=== PATIENT | female | born 1965 | race Caucasian/White ===

== ENCOUNTER 2024-04-23 11:33 | Outpatient (AMB) | payer OTHER, SELFPAY ==
--- NOTE | 2024-04-22 17:13 | MHC.OFFVIS ---
Vital Signs 04/23/24 11:41 Height 57 ft Weight 179 lb 4 oz BMI 0.3 BP 100/70 Blood Pressure Location Lt brachial Position Sitting Intake Visit Reasons: RA (no [facility] records) Intake Note: Patient presents for a follow up rheumatoid arthritis. No complaints just the usual body pain. 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 Aguilar at the [facility], diclofenac was increased to 75mg BID, which improved knee pain. She continues to have general pain but it is tolerable. She experienced Left knee joint infection s/p replacement 2021, right foot cellulitis and bacteiemia treated with IV antibiotic 01/06/2024 hospitalized 11 days. She is on doxycylcine and rifampin with oral washes until June 2024. Left shoulder is being replaced 05/2024. She went to occupational therapy in October. She had 2 sessions. She has not been consistent with exercises. She continues to have weakness in her hands. She has history of bilateral knee replacements, a hip replacement and left shoulder replacement. [facility] Social History (Updated 04/23/24 @ 11:38 by Linda Yi MA) Alcohol intake: never Patient Tobacco Use Status: Never used Tobacco Physical Exam Vital Signs: Last Vital Signs BP 100/70 04/23/24 11:41 BMI result Body Mass Index 0.3 Const Other: General: Comfortable Skin: No lesions seen MSK: Tenderness of DIPs with Heberden's nodes present. 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 No synovitis of hands. Good range of motion of shoulders. Left knee is swollen. Tenderness of left knee. Good range of motion of lower extremities. Assessment & Plan Assessment & Plan (1) Generalized osteoarthritis: Comment: Pain is better controlled with increasing diclofenac dose to 75 mg twice a day. She has history of osteoarthritis affecting hands, knee status post replacement, and hip status post replacement. Code(s): M15.9 - Polyosteoarthritis, unspecified Category: Medical Plan: Continue diclofenac 75 mg twice a day. Labs for drug monitoring chronic NSAID ordered She will call office when she needs diclofenac prescription refilled [facility] Return to clinic in 3 months (2) Osteoarthritis of hands, bilateral: Comment: Completed occupational therapy two session but has not been consistent with exercises at home. Code(s): M19.041 - Primary osteoarthritis, right hand; M19.042 - Primary osteoarthritis, left hand Category: Medical Qualifiers: Osteoarthritis type: primary Qualified Code(s): M19.041 - Primary osteoarthritis, right hand; M19.042 - Primary osteoarthritis, left hand Plan: We discussed importance of having a consistent exercise program. She will also try purchasing hand exercise gripping balls Continue diclofenac 75 mg twice a day Labs for drug monitoring chronic NSAID ordered Return to clinic in 3 months. Can consider another referral for occupational therapy next visit if needed (3) senior living (current) use of non-steroidal anti-inflammatories (nsaid): Code(s): Z79.1 - senior living (current) use of non-steroidal anti-inflammatories (NSAID) Category: Medical Plan: See above Orders: Orders Creatinine Today Z79.1 - senior living (current) use of non-steroidal anti-inflammatories (NSAID) Aspartate Amino Transferase Today Z79.1 - keno terminal operator (current) use of non-steroidal anti-inflammatories (NSAID) Alanine Aminotransferase Today Z79.1 - senior living (current) use of non-steroidal anti-inflammatories (NSAID) Complete Blood Count Auto Diff Today Z79.1 - keno terminal operator (current) use of non-steroidal anti-inflammatories (NSAID) Coding Level of Care Code Est Pt Level 4 (17178) Complex EM visit Add On G2211 Diagnoses Generalized osteoarthritis M15.9 Primary osteoarthritis of both hands M19.041; M19.042 Osteoarthritis type: primary senior living (current) use of non-steroidal anti-inflammatories (nsaid) Z79.1
[2024-04-23 11:41] VITALS: BP 100/70
== END 2024-04-23 12:21 | disposition home or self-care (01) ==
PROVIDERS: PCP Physician Assistant; Visit Provider Internal Medicine Rheumatology
DX: M15.9 Polyosteoarthritis, unspecified (principal); M19.041 Primary osteoarthritis, right hand; M19.042 Primary osteoarthritis, left hand; Z79.1 Long term (current) use of non-steroidal anti-inflammatories (NSAID)
CPT/HCPCS: 99214

== ENCOUNTER 2024-07-23 09:58 | Outpatient (REF) | payer OTHER, SELFPAY ==
[2024-07-23 18:36] LABS: Alanine Aminotransferase 29 U/L (0-31); Albumin Level 3.9 g/dL (3.5-5.0); Alkaline Phosphatase 127 U/L (39-117); Aspartate Amino Transferase 27 U/L (5-31); Bilirubin Direct 0.1 mg/dL (0.0-0.5); Bilirubin Total 0.3 mg/dL (0.0-1.0); Total Protein 6.6 g/dL (6.5-8.0)
[2024-07-23 18:37] LABS: Alanine Aminotransferase 26 U/L (0-31); Aspartate Amino Transferase 27 U/L (5-31)
== END 2024-07-23 09:59 | disposition home or self-care (01) ==
LOC: HO.HKASLDS 09:58
PROVIDERS: PCP Physician Assistant; Visit Provider Internal Medicine Rheumatology
DX: M15.9 Polyosteoarthritis, unspecified (principal); R74.01 Elevation of levels of liver transaminase levels; Z79.1 Long term (current) use of non-steroidal anti-inflammatories (NSAID)
CPT/HCPCS: 36415; 80076; 84450; 84460

== ENCOUNTER 2024-07-23 09:58 | Outpatient (AMB) | payer OTHER, SELFPAY ==
--- NOTE | 2024-07-23 10:02 | MHC.OFFVIS ---
Vital Signs 07/23/24 10:06 Height 5 ft 7 in Weight 183 lb 13.848 oz BMI 28.8 BP 130/90 H Blood Pressure Location Rt brachial Position Sitting Pulse 72 Pulse Source Pulse Oximeter Pulse Oximetry (%) 97 Oxygen Delivery Method Room Air Intake Visit Reasons: RA Intake Note: Patient presents for a follow up rheumatoid arthritis. Allergies No Known Allergies Allergy (Verified 07/23/24 10:06) HPI HPI RA: Details: She was on rifampin and doxycycline for treatment of septic arthritis involving her left knee prosthetic joint and left foot. She is now off of rifampin and remains on doxycycline. She will be seeing Infectious Disease for consideration of continue doxycycline long term acute care registered nurse or discontinuing it. She has increased joint pain and gel phenomenon since decreasing diclofenac from 75 mg b.i.d. to 50 mg b.i.d.. She had replacement of left shoulder May 2024. She is undergoing physical therapy. She has been doing exercises for her right hand. She was told to hold left hand exercises due to PT for left shoulder. [facility] Surgical History (Updated 07/23/24 @ 10:07 by Prachi Meade CMA) History of shoulder replacement Social History (Updated 04/23/24 @ 11:38 by Linda Yi MA) Alcohol intake: never Patient Tobacco Use Status: Never used Tobacco Review of Systems Const All systems reviewed & are unremarkable except as noted in HPI and below Physical Exam Vital Signs: Last Vital Signs Pulse 72 07/23/24 10:06 BP 130/90 H 07/23/24 10:06 Pulse Ox 97 07/23/24 10:06 Oxygen Delivery Method Room Air 07/23/24 10:06 BMI result Body Mass Index 28.8 Const Other: General: Comfortable Skin: No lesions seen MSK: Tenderness of DIPs with Heberden's nodes present. Tender bilateral MCPs. 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 No synovitis of hands. Assessment & Plan Assessment & Plan (1) Generalized osteoarthritis: Comment: Generalized pain has increased since decreasing diclofenac from 75 mg b.i.d. to 50 mg b.i.d. due to transaminitis labs from May 2024. She was also being treated with antibiotic rifampin and doxycycline for septic arthritis, which can also contribute to transaminitis. I will be ordering labs with repeating liver function this visit. She has developed pain in her MCPs this visit without synovitis (new onset). We discussed monitoring for progression and signs to watch for concerning for inflammatory arthritis. She has history of osteoarthritis affecting hands, bilateral knee status post bilateral replacement, left shoulder replacement and left hip status post replacement. Code(s): M15.9 - Polyosteoarthritis, unspecified Category: Medical Plan: Continue diclofenac 50 mg twice a day. If LFTs normalize, I will increase diclofenac to 75 mg b.i.d. Labs for drug monitoring chronic NSAID ordered She will be following up with orthopedic surgeon about pain post replacement of joints Monitor MCPs for progression of pain and development of swelling. She will then call office for evaluation and further workup for inflammatory arthritis. Return to clinic in 3 months (2) Osteoarthritis of hands, bilateral: Comment: Completed occupational therapy two session in the past but has not been consistent with exercises at home. At this time occupational therapy is on hold due to her undergoing PT post left shoulder replacement. Code(s): M19.041 - Primary osteoarthritis, right hand; M19.042 - Primary osteoarthritis, left hand Category: Medical Qualifiers: Osteoarthritis type: primary Qualified Code(s): M19.041 - Primary osteoarthritis, right hand; M19.042 - Primary osteoarthritis, left hand Plan: We discussed importance of having a consistent exercise program. She will continue using gripping balls with her right hand. She will communicate with physical therapist about when it is safe for her to resume OT exercises left hand Continue diclofenac 50 mg twice a day. Plan to increase diclofenac to 75 mg b.i.d. if transaminitis resolves Labs for drug monitoring chronic NSAID ordered Return to clinic in 3 months. Can consider another referral for occupational therapy next visit if needed (3) long term care phlebotomist (current) use of non-steroidal anti-inflammatories (nsaid): Code(s): Z79.1 - long term care phlebotomist (current) use of non-steroidal anti-inflammatories (NSAID) Category: Medical Plan: See above Orders: Orders Liver Panel Today R74.01 - Elevation of levels of liver transaminase levels Creatinine Today Z79.1 - long term care phlebotomist (current) use of non-steroidal anti-inflammatories (NSAID) Coding Level of Care Code Est Pt Level 4 (98105) Complex EM visit Add On G2211 Diagnoses Generalized osteoarthritis M15.9 Primary osteoarthritis of both hands M19.041; M19.042 Osteoarthritis type: primary detention (current) use of non-steroidal anti-inflammatories (nsaid) Z79.1
[2024-07-23 10:06] VITALS: BP 130/90; PULSE 72; O2SAT 97; BMI 28.8
== END 2024-07-23 10:33 | disposition home or self-care (01) ==
LOC: HO.RHES 09:59
PROVIDERS: PCP Physician Assistant; Visit Provider Internal Medicine Rheumatology
DX: M19.041 Primary osteoarthritis, right hand (principal); M19.042 Primary osteoarthritis, left hand; Z79.1 Long term (current) use of non-steroidal anti-inflammatories (NSAID)
CPT/HCPCS: 99214

== ENCOUNTER 2024-10-23 10:17 | Outpatient (REF) | payer OTHER, SELFPAY ==
[2024-10-23 18:33] LABS: Alanine Aminotransferase 38 U/L (0-31); Aspartate Amino Transferase 37 U/L (5-31); Estimated Glomerular Filt Rate > 60
== END 2024-10-23 10:18 | disposition home or self-care (01) ==
LOC: HO.HKASLDS 10:17
PROVIDERS: PCP Physician Assistant; Visit Provider Internal Medicine Rheumatology
DX: M19.041 Primary osteoarthritis, right hand (principal); M19.042 Primary osteoarthritis, left hand; Z79.1 Long term (current) use of non-steroidal anti-inflammatories (NSAID)
CPT/HCPCS: 36415; 82565; 84450; 84460

== ENCOUNTER 2024-10-23 10:17 | Outpatient (AMB) | payer OTHER, SELFPAY ==
--- OUTSIDE RECORDS SUMMARY | 2023-11-16 11:29 | XMS_ITS | Continuity of Care Document ---
Author Organization [facility] Address [address] [place] [address] Dr [address] [place] [address] Phone Care Team Providers Care Chief Of Planning Name Role Phone Alex RICHARDSON, NORBERTO, Sarthak MONTES Unavailable U navailable Procedures Procedure Date Offic Cons New/estab Mod-hi 60- CT & [place] Duplex Scan-extrem Veins; Comp- [place] & [place] Advance Directives Directive Yes / No Effective Date File Name No Information Encounters Encounter Description Practice Location Reason(s) For Visit Diagnoses Date Provider Providers Copied on Encounter [facility], [address] [place] [address] Dr Thakkar [address], [id number], tel:[phone] CVJames Huerta No Information Alex RICHARDSON, SIMON THORNTON. [address], [place], [place], [id number] , [place]. tel:[phone] Offic Cons New/estab Mod-hi 60- [place] & [place] [facility] MD CHANDRA, [address] [place] [address] Dr Thakkar [address]De[place], [id number], tel:[phone] CVJames - [facility] Chronic venous hypertension (idiopathic) with other complications of bilateral lower extremityRestle ss legs syndromeVenous insufficiency (chronic) (peripheral)Lym phedema, not elsewhere classifiedPruri tus, unspecifiedHere ditary lymphedemaLocal ized edema 4 Alex RICHARDSON, NORBERTO, RPGISELLA De León. [address] [facility] [address] [facility], [address], [facility] [place], [id number] , [place]. tel:[phone] [facility], [address], [place], [id number], [place] tel:[phone] [facility] Chronic venous hypertension (idiopathic) with other complications of bilateral lower extremity 4 Alex RICHARDSON RVT, SIMON De León. [address], [address], [place], [id number] , [place]. tel:[phone] Referring Provider: Sarthak Johnson MD, NORBERTO, SIMON, [address] [facility] [address], [place], [address] . tel:[phone] Family History Family Member Type Diagnosis Age At Onset No Information Payers Payer name Insurance type Covered republican ID [facility] [facility] [id number] Social History Type Description Quantity Date Captured Comments Sex Female Smoking Status No Information Chief Complaint And Reason For Visit No Information Reason For Referral Reason For Referral No Information Plan Of Treatment Date Type Action Status Goal Diet education completed Referral Ordered: Weight management: Referral to physician timeframe: 3 Months (related to Body mass index (BMI) 27.0-27.9, adult) ordered History Of Present Illness Encounter Date Complaint History Of Prese nt Illness No Information Functional Status Date Functional Assessmen t No Information Instructions Date Instruction Additional Infor mation Diet education Related to Body mass index (BMI) 27.0-27.9, adult Giving Encouragement to exercise Related to Body mass index (BMI) 27.0-27.9, adult Lifestyle education Related to B nazario mass index (BMI) 27.0-27.9, adult Patient education booklet given Related to Chronic venous hypertension (idiopathic) with other complications of bilateral lower extremity Pre and post instruc tions reviewed and provided Related to Chronic venous hypertension (idiopathic) with other complications of bilateral lower extremity Assessments Type Assessment Date No Information Patient Care Teams Name Effective Dates (start - stop) Status Members No Information
--- NOTE | 2024-10-23 10:22 | A.OFFVIS_ITS ---
Vital Signs 10/23/24 10:23 Height 5 ft 7 in Weight 184 lb BMI 28.8 BP 120/70 Blood Pressure Location Lt brachial Position Sitting Pulse 73 Pulse Source Pulse Oximeter Pulse Oximetry (%) 99 Oxygen Delivery Method Room Air Intake Visit Reasons: 3 Months Intake Note: Patient presents for a follow up rheumatoid arthritis. Allergies No Known Allergies Allergy (Verified 10/23/24 10:29) HPI HPI 3 Months: Details: Overall pain has improved since being back on diclofenac 75mg BID from 50mg BID MS 1-2 hours She is experiencing gel phemenemena Joint pain in hands has resolved with higher dose of diclofenac. No new joint swelling. Her PCP spoke with her about questioning connective tissue disease due to multiple joint replacement at a young age. [facility] Surgical History (Updated 10/23/24 @ 10:28 by Prachi Meade CMA) Status post scar revision History of shoulder replacement Social History (Updated 04/23/24 @ 11:38 by Linda Yi MA) Alcohol intake: never Patient Tobacco Use Status: Never used Tobacco Physical Exam Vital Signs: Last Vital Signs Pulse 73 10/23/24 10:23 BP 120/70 10/23/24 10:23 Pulse Ox 99 10/23/24 10:23 Oxygen Delivery Method Room Air 10/23/24 10:23 BMI result Body Mass Index 28.8 Const Other: General: Comfortable Skin: No lesions seen MSK: No tender joints. No synovitis. Heberden nodes present. Normal range of motion of upper extremities. Bilateral knee flexion 100 degrees. No MTP tenderness. Assessment & Plan Assessment & Plan (1) Generalized osteoarthritis: Comment: Generalized pain is tolerable on diclofenac 70 mg b.i.d. MCP pain has resolved. At this time she does not have any clinical evidence of inflammatory arthritis or any other connective tissue disease. We discussed signs and clinical symptoms to monitor for inflammatory arthritis. She has history of osteoarthritis affecting hands, bilateral knee status post bilateral replacement, left shoulder replacement and left hip status post replacement. Code(s): M15.9 - Polyosteoarthritis, unspecified Category: Medical Plan: Continue diclofenac 75 mg twice a day. Labs for drug monitoring chronic NSAID ordered If she develops worsening swelling of right knee s/p replacement I have asked her to contact orthopedic surgeon for consideration of diagnostic arthrocentesis Monitor MCPs and PIP knees for progression of pain and development of swelling. She will also monitor for worsening joint stiffness. She will then call office if symptoms progress for evaluation and further workup for inflammatory arthritis. Return to clinic in 3 months (2) Osteoarthritis of hands, bilateral: Comment: Improved pain with higher dose of diclofenac. She continues to do exercises learned from OT. Code(s): M19.041 - Primary osteoarthritis, right hand; M19.042 - Primary osteoarthritis, left hand Category: Medical Qualifiers: Osteoarthritis type: primary Qualified Code(s): M19.041 - Primary osteoarthritis, right hand; M19.042 - Primary osteoarthritis, left hand Plan: Continue OT exercises Continue diclofenac 75 mg twice a day Labs for drug monitoring chronic NSAID ordered Return to clinic in 3 months (3) halfway (current) use of non-steroidal anti-inflammatories (nsaid): Code(s): Z79.1 - halfway (current) use of non-steroidal anti-inflammatories (NSAID) Category: Medical Plan: See above Orders: Orders Alanine Aminotransferase Today Z79.1 - middle or intermediate school principal (current) use of non-steroidal anti-inflammatories (NSAID) Aspartate Amino Transferase Today Z79.1 - halfway (current) use of non-steroi collin anti-inflammatories (NSAID) Coding Level of Care Code Est Pt Level 4 (96934) Complex EM visit Add On G2211 Diagnoses Generalized osteoarthritis M15.9 Primary osteoarthritis of both hands M19.041; M19.042 Osteoarthritis type: primary middle or intermediate school principal (current) use of non-steroidal anti-inflammatories (nsaid) Z79.1 Time Spent (min) 20
[2024-10-23 10:23] VITALS: BP 120/70; PULSE 73; O2SAT 99; BMI 28.8
== END 2024-10-23 10:56 | disposition home or self-care (01) ==
LOC: HO.RHES 10:18
PROVIDERS: PCP Physician Assistant; Visit Provider Internal Medicine Rheumatology
DX: M15.9 Polyosteoarthritis, unspecified (principal); Z79.1 Long term (current) use of non-steroidal anti-inflammatories (NSAID)
CPT/HCPCS: 99213; G2211

== ENCOUNTER 2025-01-16 12:06 | Outpatient (REF) | payer OTHER, SELFPAY ==
--- OUTSIDE RECORDS SUMMARY | 2025-01-16 14:20 | XMS_ITS | Clinical Summary ---
Author Organization 175 [facility] Address [address] [place] [address] Phone Care Team Providers Care Head Waiter/Waitress Name Role Phone Beth Tolbert Primary Care Provider + Allergies No known active allergies Medications Bacillus coagulans/inulin (PROBIOTIC FORMULA, INULIN, ORAL) Take by mouth daily. 04/04/20 23 Active inulin (FIBER GUMMIES ORAL) Take by mouth daily. Active multivitamin tablet daily. 06/17/19 23 Active erenumab-aooe (Aimovig Autoinjector) 140 mg/mL injection Inject 140 mg into the skin every 30 days. 04/28/20 22 Active cholecalciferol (VITAMIN D-3) 50 mcg (2,000 unit) capsule Take 1 capsule by mouth daily. 05/19/19 22 Active clobetasoL (TEMOVATE) 0.05 % cream 09/04/19 19 Active desonide (DESOWEN) 0.05 % cream 09/04/19 19 Active fluticasone propionate (FLONASE) 50 mcg/actuation nasal spray USE 1 TO 2 SPRAYS IN EACH NOSTRIL ONCE DAILY. 05/11/19 11 Active omeprazole (PriLOSEC) [address] capsule Take 1 Capsule by mouth daily. 05/04/19 24 Active pregabalin (LYRICA) 75 mg capsule TAKE 1 CAPSULE BY MOUTH TWICE DAILY 03/21/20 23 Active ondansetron (ZOFRAN) 4 mg tablet Take 1 Tablet by mouth every 8 hours as needed for Nausea. - Oral 01/18/20 24 Active diclofenac (VOLTAREN) 75 mg EC tablet Take 1 tablet (75 mg total) by mouth 2 (two) times a day. Do not crush, chew, or split. Active doxycycline (ADOXA) 100 mg tablet Take 1 tablet (100 mg total) by mouth 2 (two) times a day. Take with a full glass of water and do not lie down for at least 30 minutes after Active traZODone (DESYREL) 50 mg tabletIndications :Insomnia, unspecified type Take 1-2 tabs nightly as needed 180 tablet 3 06/17/19 25 Active furosemide (LASIX) 40 mg tablet Take 1 tablet (40 mg total) by mouth 1 (one) time each day. 90 tablet 3 07/16/19 25 Active bisacodyL (DULCOLAX) 5 mg EC tablet Take 2 tablets by mouth right before beginning bowel prep. See instructions provided by the office 2 tablet 07/24/19 25 Active bisacodyL (DULCOLAX) 5 mg EC tablet Take 2 tablets by mouth right before beginning bowel prep. See instructions provided by the office 2 tablet 09/21/19 25 Active polyethylene glycol (Golytely) 236-22.74-6.74 -5.86 gram solution Take 4L by mouth once for one dose. May substitue any PEG. Starting at 6PM the night before your procedure drink 1 8oz glasses at your own pace until you complete half of the gallon. Finish 2nd half of the gallon 5 hours before your procedure. 4000 mL 09/21/19 25 Active linaCLOtide (Linzess) 72 mcg capsule Take 1 capsule (72 mcg total) by mouth 1 (one) time each day. 90 capsule 3 10/15/19 25 Active dicyclomine (BENTYL) 10 mg capsule Take 1 capsule (10 mg total) by mouth 3 (three) times a day if needed (abd pain, diarrhea). 270 capsule 3 10/15/19 25 026 Active phentermine 15 mg capsuleIndication s:Obesity (BMI 30.0-34.9) Take 1 capsule (15 mg total) by mouth 1 (one) time each day before breakfast. Max Daily Amount: 15 mg 30 each 11/30/19 25 Active phentermine-topir amate (Qsymia) 11.25-69 mg capsule, ER multiphase 24 hrIndications:Obe sity (BMI 30.0-34.9),Chroni c pain of both knees Take 1 capsule by mouth 1 (one) time each day. Max Daily Amount: 1 capsule 30 capsule 3 12/20/19 25 Active tiZANidine (ZANAFLEX) 4 mg tablet Take 1/2 tab every morning as needed and 1 tablet every evening as needed 135 tablet 2 01/16/20 25 Active tiZANidine (ZANAFLEX) 4 mg tablet Take 1/2 tab every morning as needed and 1 tablet every evening as needed 135 tablet 2 07/09/19 25 025 Discontinu ed(Reorder ) phentermine-topir amate (Qsymia) 7.5-46 mg capsule, ER multiphase 24 hrIndications:Obe sity (BMI 30.0-34.9),Hyperl ipidemia, unspecified hyperlipidemia type,Lumbar pain Take 1 capsule by mouth 1 (one) time each day. Max Daily Amount: 1 capsule 28 capsule 11/27/19 25 025 Discontinu ed(Dose adjustment ) amoxicillin-clavu lanate (AUGMENTIN) 875-125 mg per tablet Take 1 tablet by mouth 2 (two) times a day for 10 days. 20 each 12/24/19 25 025 Active Problems Problem Noted Date Diagnosed Date Eczema 02/08/2024 Overview (02/08/2024): f/u NE DERM Obesity (BMI 30.0-34.9) 02/08/2024 Chronic pain of both knees 05/19/2020 Shakiness 05/12/2020 Disorder of left rotator cuff 05/05/2020 Abscess of left thigh 04/28/2020 MRSA carrier 04/28/2020 Lumbar pain 06/20/2019 Allergic rhinitis 11/14/2017 Chronic venous insufficiency 11/14/2017 Headache, migraine 11/14/2017 Hyperlipidemia 11/14/2017 Idiopathic small fiber peripheral neuropathy Edema 12/29/2016 Irritable bowel syndrome 05/12/2016 Insomnia 10/27/2015 Breast asymmetry 04/23/2015 Encounters Date Type Department Care Team Description 12/23/2024 Telephone Internal Medicine [facility] 175 [facility] [address] [place] [address] Nivia Alvarez [place] 12/19/2024 1:00 PM EDT Office Visit Internal Medicine [address] [place] [address] Ivone Mullen, BRITTNEY Obesity (BMI 30.0-34.9) (Primary Dx); Chronic migraine with aura without status migrainosus, not intractable; Chronic pain of both knees 11/12/2024 1:45 PM EDT Consult General Surgery [address] [place] [phone] Dilshad Victoria, DO Diverticulitis of large intestine without perforation or abscess without bleeding (Primary Dx); Hx of colonic polyps; Diverticulosis 11/12/2024 Telephone Internal Medicine - [address] [place] [phone] Beth Tolbert PA 10/16/2024 Telephone Internal Medicine [address] [phone] Beth Tolbert PA from Last 3 Months Immunizations Name Administration Dates Next Due Td Tetanus diptheria (Tdvax) 7yo and older 01/08 Surgical History Surgery Date Site/Laterality Comments CHOLECYSTECTOMY PROCEDURE: HISTORICAL CHOLECYSTECTOMY BUNIONECTOMY Right PROCEDURE: BUNION SURGERY, SIMPLE REMOVAL; COMMENT: 12/2021 Dr. Trujillo SHOULDER ARTHROSCOPY 07/2019 Left PROCEDURE: PA SURGICAL ARTHROSCOPY SHOULDER W/LSS&RESCJ ADS; COMMENT: Dr. Frias OTHER SURGICAL HISTORY PROCEDURE: ANESTHESIA FOR SECTION; COMMENT: x 1 SHOULDER ARTHROSCOPY 2015 Right PROCEDURE: PA SURGICAL ARTHROSCOPY SHOULDER W/LSS&RESCJ ADS; COMMENT: Dr. Frias EYE SURGERY 01/2020 Bilateral PROCEDURE: HISTORICAL EYE SURGERY; COMMENT: Randolph Rao SHOULDER ARTHROSCOPY 03/2020 Left PROCEDURE: PA SURGICAL ARTHROSCOPY SHOULDER W/LSS&RESCJ ADS; COMMENT: Dr. Frias FOOT SURGERY -2014 Right PROCEDURE: HISTORICAL FOOT SURGERY; COMMENT: lyndsey Suarez with tendon transfer SHOULDER ARTHROSCOPY 12/2020 Left PROCEDURE: PA SURGICAL ARTHROSCOPY SHOULDER W/LSS&RESCJ ADS; COMMENT: Dr. Frias TOTAL KNEE ARTHROPLASTY 07/29/2022 Right PROCEDURE: HISTORICAL TOTAL KNEE REPLACE; COMMENT: Dr. Fay TOTAL KNEE ARTHROPLASTY 09/13/2022 Left PROCEDURE: HISTORICAL TOTAL KNEE REPLACE; COMMENT: Dr. Fay HIP ARTHROPLASTY 04/04/2023 Right PROCEDURE: HISTORICAL HIP REPLACEMENT; COMMENT: Dr. Fay REVERSE TOTAL SHOULDER ARTHROPLASTY 05/23/[address] Frias Medical History Medical History Date Comments Allergic rhinitis 11/14/2017 DX:Allergic rh initis Breast asymmetry 04/23/2015 DX:Breast asymm etry Chronic venous insufficiency 11/14/2017 DX: Chronic venous insufficiency Edema 12/29/2016 DX:Edema Headache, migraine 11/14/2017 DX:Headache, migraine History of diverticulitis of colon 04/14/2017 DX:History of diverticulitis of colon Hyperlipidemia 11/14/2017 DX:Hyperlipidemi a Idiopathic small fiber perip heral neuropathy 11/14/2017 DX:Idiopathic small fiber pe ripheral neuropathy Insomnia 10/27/2015 DX:Insomnia Irritable bowel syndrome 05/12/2016 DX:Irri table bowel syndrome Microscopic hematuria 10/02/2014 DX:Microsc opic hematuria Eczema DX:Eczema; COMME NT: f/u NE DERM At high risk for breast cancer D X:At high risk for breast cancer; COMMENT: follows [facility] Breast Fiatt - start Tamoxifen 20 mg daily 01/2020 Obesity (BMI 30.0-34.9) DX:Obesi ty (BMI 30.0-34.9) Family History Medical History Relation Name Comments Diabetes Father Breast cancer Maternal Grandmother Breast cancer Mother Relation Name Status Comments Father Maternal Grandmother Mother (Age 58) Sister Alive Social History Tobacco Use Types Packs/Day Years Used Date Smoking Tobacco: Never Smokeless Tobacco: Never Alcohol Use Standard Drinks/Week Comments No 0 (1 standard drink = 0.6 oz pur e alcohol) Housing Instability Answer Date Recorde d Are you worried that in the next 2 months you may not have stable housing? No 07/19/2024 Food Access & Nutrition Answer Date Rec orded Do you have access to a vari ety of food including fruits and vegetables? Yes 07/19/2024 Access to Healthcare Answer Date Record ed Within the last 3 months, ho w many times did you visit the emergency department for your medical care? 0 07/19/2024 Health Literacy Answer Date Recorded How often do you need to hav e someone help you when you read instructions, pamphlets, or other written material from your doctor or pharmacy? Never 07/19/2024 Caregiver: How often do you need to have someone help you when you read instructions, pamphlets, or other written material from your doctor or pharmacy? Not on file 07/19/2024 Financial Risk Answer Date Recorded How hard is it for you to pa y for the very basics like food, housing, medical care, and air conditioning / heating? Somewhat hard 07/19/2024 Transportation Answer Date Recorded Has the lack of transportati on kept you from meetings, work, or from getting things needed for daily living? No Has the lack of transportati on kept you from medical appointments or from getting medications? No 07/19/2024 Social Isolation Answer Date Recorded How often do you feel lonely or isolated from th ose around you? Never 07/19/2024 Food Risk Answer Date Recorded Within the past 12 months we worried whether our food would run out before we got money to buy more. Never true 07/19/2024 Within the past 12 months th e food we bought just didn't last and we didn't have money to get more. Never true 07/19/2024 Dependent Care Answer Date Recorded Do you need help finding or paying for care for your loved ones. For example, early childhood teacher or elderly care for an older adult? No 07/19/2024 Education Answer Date Recorded Do you think completing more education or training, like finishing a GED, going to college, or learning a trade, would be helpful for you? No 07/19/2024 Employment and Income Answer Date Recor ded During the last four weeks, have you been actively looking for work? No 07/19/2024 Living Situation Answer Date Recorded What is your living situation? 0 07/19/2024 Comments No Sex and Gender Information Value Date Recorded Sex Assigned at Not on file Legal Sex Female 1:58 PM EST Gender Identity Not on file Sexual Orientation Not on file Obstetrics History Last Filed Vital Signs Vital Sign Reading Time Taken Comments Blood Pressure 134/78 12/19/2024 1:14 PM EDT Pulse 110 12/19/2024 1:14 PM EDT Temperature 36.3 C (97.3 F) 12/19/2024 1:14 PM EDT Respiratory Rate 18 10/04/2024 8:56 AM EDT Oxygen Saturation 98% 12/19/2024 1:14 PM EDT Inhaled Oxygen Concentration - - Weight 80.1 kg (176 lb 9.6 oz) 12/19/2024 1:14 P M EDT Height 170.2 cm (5' 7 ) 12/19/2024 1:14 PM EDT Body Mass Index 27.66 12/19/2024 1:14 PM EDT Plan of Treatment Upcoming Encounters Date Type Department Care Team (Late st Contact Info) Description 04/15/2025 10:30 AM EST Office Visit Internal Medicine [facility] [address] [phone] Ivone Mullen NP [address] [address] 04/16/2025 9:30 AM EST Office Visit Gastroenterology [facility] [address] [phone] Diana Napoles PA [address] [address] 05/12/2025 10:00 AM EST Office Visit General Surgery [facility] [address] [phone] Dilshad Victoria, DO [address] [address] 07/28/2025 10:00 AM EDT Office Visit Internal Medicine [facility] [address] [phone] Beth Tolbert PA [address] [address] Health Maintenance Due Date Last Done Comments Breast Cancer Screening 1965 Hepatitis B Vaccines (1 of 3 - 19+ 3-dose series) 1985 Cervical Cancer Screening: P ap Smear 10/26/1987 Pneumococcal Vaccine: 50+ Years (1 of 1 - PCV) 2016 Zoster Vaccines (1 of 2) 2016 DTaP,Tdap,and Td Vaccines (2 - Td or Tdap) 01/08/2018 01/09/2008 HIV Screening 04/09/2022 Hepatitis C Screening 04/09/2022 Osteoporosis Screening (Bone Density Screening) 04/09/2022 COVID-19 Vaccine (3 - 2024-2 6 season) 2024 10/07/2020, 09/16/2020 Influenza Vaccine (#1) 2024 , 04/20/2020 Social Influencers of Health Screening 07/19/2025 07/19/2024 Colorectal Cancer Screening: Colonoscopy 10/05/2027 10/04/2024, 02/15/2023 Cholesterol Screening (Lipid Panel) 05/16/2029 05/16/2024, 05/05/2020 MMR Vaccines Aged Out 06/11/2021 No longer eligi ble based on patient's age to complete this topic Depression Screening Completed 07/19/2024 HIB Vaccines Aged Out No longer eligi ble based on patient's age to complete this topic HPV Vaccines Aged Out No longer eligi ble based on patient's age to complete this topic Hepatitis A Vaccines Aged Out No long er eligible based on patient's age to complete this topic IPV Vaccines Aged Out No longer eligi ble based on patient's age to complete this topic Meningococcal ACWY Vaccine Aged Out N o longer eligible based on patient's age to complete this topic Meningococcal B Vaccine Aged Out No l onger eligible based on patient's age to complete this topic RSV Immunization Patients Under 20 months Aged Out No longer eligible b ased on patient's age to complete this topic Varicella Vaccines Aged Out No longer eligible based on patient's age to complete this topic Procedures Procedure Name Priority Date/Time Associated Diagnosis Comments COLONOSCOPY Routine 10/04/2024 8:35 AM EDT Hx of colonic polyps LIPID PANEL WITH REFLEX TO DIRECT LDL Routine 05/16/2024 11:48 AM EST Preop examination from Last 3 Months or Most Recently Relevant to Health Maintenance Results * COLONOSCOPY Anesthesia - MAC; [facility] ENDOSCOPY (10/04/2024 8:35 AM EDT) Anatomical Region Laterality Modality Endoscopy 10/04/2024 8:11 AM EDT Impressions 10/04/2024 8:36 AM EDT - Post-polypectomy scar in the ascending colon. Biopsied. - Diverticulosis in the entire examined colon. - Internal hemorrhoids. Recommendation: - Await pathology results. - Repeat colonoscopy in 3 years for surveillance. Narrative 10/04/2024 8:36 AM EDT [facility] GI Patient Name: Daiana Trimble Procedure Date: 10/04/2024 8:11 AM Date of : 1965 Age: 58 Gender: Female Note Status: Finalized Attending MD: Karthik Simms MD, Procedure Date No Time: 10/04/2024 Procedure: Colonoscopy Indications: High risk colon cancer surveillance: Personal history of colonic polyps, High risk colon cancer surveillance: Personal history of adenoma (10 mm or greater in size), High risk colon cancer surveillance: Personal history of adenoma with villous component, High risk colon cancer surveillance: Personal history of multiple (3 or more) adenomas, Last colonoscopy: January 2023 Providers: Karthik Simms MD Referring MD: Karthik Simms MD Medicines: Monitored Anesthesia Care Complications: No immediate complications. Estimated blood loss: Minimal. Estimated Blood Loss: Estimated blood loss was minimal. Procedure: Pre-Anesthesia Assessment: - Prior to the procedure, a History and Physical was performed, and patient medications and allergies were reviewed. The patient is competent. The risks and benefits of the procedure and the sedation options and risks were discussed with the patient. All questions were answered and informed consent was obtained. Patient identification and proposed procedure were verified by the physician, the nurse, the hotshot superintendent and the tissue technician in the pre-procedure area in the endoscopy suite. Mental Status Examination: alert and oriented. Airway Examination: normal oropharyngeal airway and neck mobility. Respiratory Examination: clear to auscultation. CV Examination: normal. Prophylactic Antibiotics: The patient does not require prophylactic antibiotics. Prior Anticoagulants: The patient has taken no anticoagulant or antiplatelet agents. ASA Grade Assessment: II - A patient with mild systemic disease. After reviewing the risks and benefits, the patient was deemed in satisfactory condition to undergo the procedure. The anesthesia plan was to use monitored anesthesia care (MAC). Immediately prior to administration of medications, the patient was re-assessed for adequacy to receive sedatives. The heart rate, respiratory rate, oxygen saturations, blood pressure, adequacy of pulmonary ventilation, and response to care were monitored throughout the procedure. The physical status of the patient was re-assessed after the procedure. After I obtained informed consent, the scope was passed under direct vision. Throughout the procedure, the patient's blood pressure, pulse, and oxygen saturations were monitored continuously. The Olympus Colonoscope was introduced through the anus and advanced to the cecum, identified by appendiceal orifice and ileocecal valve. The colonoscopy was performed without difficulty. The patient tolerated the procedure well. The quality of the bowel preparation was good. Findings: The perianal and digital rectal examinations were normal. A medium post polypectomy scar was found in the ascending colon. There was residual polypoid tissue. Biopsies were taken with a cold forceps for histology. Estimated blood loss was minimal. Many small and large-mouthed diverticula were found in the entire colon. Internal hemorrhoids were found during retroflexion. The hemorrhoids were Grade II (internal hemorrhoids that prolapse but reduce spontaneously). Procedure Code(s): --- Professional --- 75968, Colonoscopy, flexible; with biopsy, single or multiple Diagnosis Code(s): --- Professional --- Z98.890, Other specified postprocedural states Z86.010, Personal history of colonic polyps CPT copyright 2020 [employer]. All rights reserved. The codes documented in this report are preliminary and upon overnight cashier review may be revised to meet current compliance requirements. Karthik Simms MD 10/04/2024 8:36:31 AM This report has been signed electronically.Karthik Simms MD Number of Addenda: 0 Note Initiated On: 10/04/2024 8:11 AM Scope Withdrawal Time: 0 hours 10 minutes 57 seconds Scope In: 8:17:31 AM Scope Out: 8:34:29 AM Endoscopy Department at [facility] - [address] [place] [phone] Procedure Note Karthik Simms MD - 10/04/2024 [facility] GI Patient Name: Daiana Trimble Procedure Date: 10/04/2024 8:11 AM Date of : 1965 Age: 58 Gender: Female Note Status: Finalized Attending MD: Karthik Simms MD, Procedure Date No Time: 10/04/2024 Procedure: Colonoscopy Indications: High risk colon cancer surveillance: Personalhistory of colonic polyps, High risk colon cancer surveillance: Personal history of adenoma (10 mm or greater in size), High risk colon cancersurveillance: Personal history of adenoma with villous component, High risk colon cancer surveillance: Personalhistory of multiple (3 or more) adenomas, Last colonoscopy: January 2023 Providers: Karthik Simms MD Referring MD: Karthik Simms MD Medicines: Monitored Anesthesia Care Complications: No immediate complications. Estimated blood loss: Minimal. Estimated Blood Loss: Estimated blood loss was minimal. Procedure: Pre-Anesthesia Assessment: - Prior to the procedure, a History and Physicalwas performed, and patient medications and allergieswere reviewed. The patient is competent. The risks and benefits of the procedure and the sedation optionsand risks were discussed with the patient. Allquestions were answered and informed consent was obtained. Patient identification and proposed procedure were verified by the physician, the nurse, theanesthetist and the tissue technician in the pre-procedure area in the endoscopy suite. Mental Status Examination: alertand oriented. Airway Examination: normal oropharyngeal airway and neck mobility. Respiratory Examination: clear to auscultation. CV Examination: normal. Prophylactic Antibiotics: The patient does notrequire prophylactic antibiotics. Prior Anticoagulants: The patient has taken no anticoagulant or antiplatelet agents. ASA Grade Assessment: II - A patient withmild systemic disease. After reviewing the risks and benefits, the patient was deemed in satisfactory condition to undergo the procedure. The anesthesia plan was to use monitored anesthesia care (MAC). Immediately prior to administration of medications, the patient was re-assessed for adequacy to receive sedatives. The heart rate, respiratory rate, oxygen saturations, blood pressure, adequacy of pulmonary ventilation, and response to care were monitored throughout the procedure. The physical status ofthe patient was re-assessed after the procedure. After I obtained informed consent, the scope was passed under direct vision. Throughout theprocedure, the patient's blood pressure, pulse, and oxygen saturations were monitored continuously. TheOlympus Colonoscope was introduced through the anus and advanced to the cecum, identified by appendiceal orifice and ileocecal valve. The colonoscopy was performed without difficulty. The patient tolerated the procedure well. The quality of the bowel preparation was good. Findings: The perianal and digital rectal examinations were normal. A medium post polypectomy scar was found in the ascending colon. There was residual polypoidtissue. Biopsies were taken with a cold forceps forhistology. Estimated blood loss was minimal. Many small and large-mouthed diverticula were foundin the entire colon. Internal hemorrhoids were found duringretroflexion. The hemorrhoids were Grade II (internal hemorrhoids that prolapse but reduce spontaneously). Procedure Code(s): --- Professional --- 52237, Colonoscopy, flexible; with biopsy, singleor multiple Diagnosis Code(s): --- Professional --- Z98.890, Other specified postprocedural states Z86.010, Personal history of colonic polyps CPT copyright 2020 [employer]. All rights reserved. The codes documented in this report are preliminary and upon overnight cashier reviewmay be revised to meet current compliance requirements. Karthik Simms MD 10/04/2024 8:36:31 AM This report has been signed electronically.Karthik Simms MD Number of Addenda: 0 Note Initiated On: 10/04/2024 8:11 AM Scope Withdrawal Time: 0 hours 10 minutes 57 seconds Scope In: 8:17:31 AM Scope Out: 8:34:29 AM Endoscopy Department at [facility] - [address] [place] [phone] IMPRESSION: - Post-polypectomy scar in the ascending colon. Biopsied. - Diverticulosis in the entire examined colon. - Internal hemorrhoids. Recommendation: - Await pathology results. - Repeat colonoscopy in 3 years for surveillance. us Karthik Simms MD GI~PROCEDURE ORDERABLES Fin al Result * (ABNORMAL) Lipid panel with reflex to direct LDL (05/16/2024 11:48 AM EST) Cholesterol 188 0 - 200 mg/dL LAB CHEMISTRY METHOD 05/16/2024 3:23 PM EST [facility] Triglycerides 148 0 - 150 mg/dL LAB CHEMISTRY METHOD 05/16/2024 3:23 PM EST [facility] HDL 43 >=40 mg/dL LAB CHEMISTRY METHOD 05/16/2024 3:23 PM EST [facility] LDL Calculated 115(H) 0 - 100 mg/dL LAB CHEMISTRY METHOD 05/16/2024 3:23 PM EST [facility] VLDL Cholesterol Yossi 29.6 mg/dL LAB CHEMISTRY METHOD 05/16/2024 3:23 PM EST [facility] Non HDL Chol. (LDL+VLDL) 145(H) <145 mg/dL LAB CHEMISTRY METHOD 05/16/2024 3:23 PM EST [facility] Chol/HDL Ratio 4.4 0.0 - 4.4 LAB CHEMISTRY METHOD 05/16/2024 3:23 PM [facility] Blood Venous blood specimen / Unknown Venipuncture / Unknown 05/16/2024 11:48 AM EST 05/16/2024 11:48 AM EST us Jose Ramon Theodore MD LAB BLOOD ORDERABLES Final Resul t [facility] [address] [place] [address], from Last 3 Months or Most Recently Relevant to Health Maintenance Insurance [facility] [address] [place] [id number] Care Teams Head Waiter/Waitress Relationship Specialty Start Date End Date Beth Tolbert PA 175 [facility] [address] [place] [address] PCP - General Primary Care 05/16/24
--- OUTSIDE RECORDS SUMMARY | 2025-01-16 14:20 | XMS_ITS | Clinical Summary ---
Author Organization [facility] Address [address] [place] [address] Phone Care Team Providers Care Bonding Machine Tender Name Role Phone Beth Tolbert Primary Care Provider + Allergies No known active allergies Medications celecoxib (CELEBREX) 200 MG capsule Take 200 mg by mouth daily. Active traZODone (DESYREL) 50 MG tablet Take 50 mg by mouth nightly at bedtime. Active furosemide (LASIX) 40 MG tablet Take 40 mg by mouth daily. Active amoxicillin (AMOXIL) 500 MG capsule Take 500 mg by mouth daily. Active tiZANidine (ZANAFLEX) 4 MG tablet Take 4 mg by mouth daily. Active traMADoL (ULTRAM) 50 mg tablet Take 50 mg by mouth as needed for pain (specific location in comments). Active erenumab-aooe (AIMOVIG AUTOINJECTOR) 140 mg/mL subcutaneous injection Inject 140 mg under the skin every 28 days. Active tamoxifen (NOLVADEX) 20 MG tablet Take 20 mg by mouth daily. Active Immunizations Immunization Administration Dates Next Due COVID-19 (Pre-02/20) Pfizer Vaccine, mRNA, mehreen-sucrose, PF 10/07/2020,09/16/2020 Social History Tobacco Use Types Packs/Day Years Used Date Smoking Tobacco: Never Cigarettes Education Answer Date Recorded Are you interested in more education? Not on ofelia e 08/26/2022 Are you concerned about learning? Not on file 08/26/2022 No 08/26/2022 No 08/26/2022 Digital Access Answer Date Recorded No 09/25/2022 No 09/25/2022 No 09/25/2022 Reliable internet access at home? Not on file 09/25/2022 Device with a working camera? Not on file Comments Unknown Sex and Gender Information Value Date Recorded Sex Assigned at Female 08/03/2021 12:24 PM EDT Legal Sex Female 12:21 PM EDT Gender Identity Female 08/03/2021 12:24 PM EDT Sexual Orientation Straight 08/03/2021 12 :24 PM EDT Last Filed Vital Signs Vital Sign Reading Time Taken Comments Blood Pressure 123/81 10/26/2021 1:53 PM EDT Pulse 97 10/26/2021 1:53 PM EDT Temperature 37 C (98.6 F) 10/26/2021 1:53 PM EDT Respiratory Rate - - Oxygen Saturation 96% 10/26/2021 1:53 PM EDT Inhaled Oxygen Concentration - - Weight - - Height 170.2 cm (5' 7 ) 10/26/2021 1:53 PM EDT Body Mass Index - - Plan of Treatment Health Maintenance Due Date Last Done Comments Adult Td,Tdap Booster 1966 LIPID PANEL 1966 DEPRESSION SCREENING 1978 HEPATITIS C SCREENING 1984 HIV ONE-TIME SCREENING (18-65 YEARS) 1984 PAP SMEAR 10/26/1987 SMOKING STATUS SCREENING (Once After 26 Yrs) 1992 MAMMOGRAM 2006 COLOGUARD 10/26/2011 COLONOSCOPY 10/26/2011 COLORECTAL CANCER SCREENING 10/26/2011 FIT TEST 10/26/2011 FOBT 10/26/2011 SIGMOIDOSCOPY 10/26/2011 VIRTUAL COLONOSCOPY 10/26/2011 PNEUMOCOCCAL VACCINES (50+ years) (1 of 1 - PCV) 2016 ZOSTER VACCINES (1 of 2) 2016 INFLUENZA VACCINE (#1) 2024 04/20/2020 COVID-19 VACCINE ( season) 2024 10/07/2020, 10/07/2020, 09/16/2020, Additional history exists HEPATITIS A VACCINES Aged Out No long er eligible based on patient's age to complete this topic HIB VACCINES Aged Out No longer eligi ble based on patient's age to complete this topic MENINGOCOCCAL VACCINES (ACWY) Aged Out No longer eligible based on patient's age to complete this topic MENINGOCOCCAL VACCINES (B) Aged Out N o longer eligible based on patient's age to complete this topic Medical Devices Not on file Insurance HMO HMO HMO HMO HMO HMO [address] [place], [place] [address]O [facility] HMO Care Teams Bonding Machine Tender Relationship Specialty Start Date End Date Beth Tolbert PA 175 [facility] 200 [place] [address] PCP - General 08/03/21 Additional Source Comments The information contained in this document represents components of the legal health record. It is not the complete legal health record.[facility]
--- OUTSIDE RECORDS SUMMARY | 2025-01-16 14:20 | XMS_ITS | Encounter Summary ---
Author Organization [facility] Address [address] [place] [address] Care Team Providers Care Pretzel Cooker Name Role Phone Beth Tolbert Primary Care Provider + Reason for Visit * Reason Onset Date Comments Prior Auth 12/23/2024 Encounter Details Date Type Department Care Team ([facility] st Contact Info) Description 12/23/2024 Telephone Internal Medicine - [address] [place] [address] Nivia Alvarez MA Social History Tobacco Use Types Packs/Day Years [...] care for your loved ones. For example, child welfare worker or elderly care for an older adult? [...] on file Sexual Orientation Not on file documented as of this encounter Progress Notes * Dara Padilla MA - 01/01/2025 10:25 AM EDT PA for PHENTERMINE-TOPIRAMATE ER 3.75-23 MG ER CAPSULES * Dara Padilla MA - 12/23/2024 10:14 AM EDT PA for PHENTERMINE-TOPIRAMATE ER 3.75-23 MG ER CAPSULES initiated today on CMM Dx Obesity Clinicals notes uploaded and sent to insurance company awaiting for insurance determination. * Nivia Alvarez MA - 12/23/2024 8:22 AM EDT Is this a Cover My Meds request: (There is a arzate code only if CoverMyMeds) Arzate Code: [email or web address] Name of Medication: PHENTERMINE-TOPIRAMATE ER 3.75-23 MG ER CAPSULES How does patient take this med? TAKE 1 CAPSULE BY MOUTH 1(ONE) TIME EACH DAY What Pharmacy did the fax come from: [facility] Pharmacy fax #: [phone] documented in this encounter Plan of Treatment Upcoming Encounters Date Type Department Care Team (Late st Contact Info) Description 04/15/2025 10:30 AM EST Office Visit Internal Medicine - [place] [address] [phone] Ivone Mullen NP [address] [address] 04/16/2025 9:30 AM EST Office Visit Gastroenterology - [place] 175 [facility] [address] [phone] Diana Napoles PA 175 [facility] 200 [place] [address] 05/12/2025 10:00 AM EST Office Visit General Surgery - [place] [address] [phone] Dilshad Victoria DO [address] [address] 07/28/2025 10:00 AM EDT Office Visit Internal Medicine - [place] [address] [phone] Beth Tolbert PA [address] [address] documented as of this encounter Visit Diagnoses Not on filedocumented in this encounter Additional Health Concerns Assessment Noted Time PHQ-9 Depression Total Score: 1 07/20/19 25 2:26 PM EDT documented as of this encounter Care Teams Pretzel Cooker Relationship Specialty Start Date End Date Beth Tolbert PA [address] [address] PCP - General Primary Care 05/16/24 documented as of this encounter
[2025-01-16 18:21] LABS: Alanine Aminotransferase 27 U/L (0-31); Aspartate Amino Transferase 29 U/L (5-31)
== END 2025-01-16 12:07 | disposition home or self-care (01) ==
LOC: HO.HKASLDS 12:06
PROVIDERS: Visit Provider Internal Medicine Rheumatology
DX: R74.01 Elevation of levels of liver transaminase levels (principal)
CPT/HCPCS: 36415; 84450; 84460

== ENCOUNTER 2025-01-23 09:20 | Outpatient (REF) | payer OTHER, SELFPAY ==
[2025-01-23 13:33] LABS: Hemoglobin A1C 94.7592 umol/L; Total Hemoglobin (HGBA1C) 2859.8720 umol/L
[2025-01-23 14:11] LABS: Vitamin B12 537 pg/mL (200-900)
[2025-01-23 14:12] LABS: Estimated Glomerular Filt Rate > 60
== END 2025-01-23 09:21 | disposition home or self-care (01) ==
LOC: HO.HKASLDS 09:20
PROVIDERS: PCP Physician Assistant; Visit Provider Internal Medicine Rheumatology
DX: M19.041 Primary osteoarthritis, right hand (principal); M19.042 Primary osteoarthritis, left hand; R20.2 Paresthesia of skin; G62.9 Polyneuropathy, unspecified; R74.01 Elevation of levels of liver transaminase levels; Z79.1 Long term (current) use of non-steroidal anti-inflammatories (NSAID); Z79.899 Other long term (current) drug therapy
CPT/HCPCS: 36415; 82565; 82607; 83036; 84443; 85652; 86140; 86200; 86431

== ENCOUNTER 2025-01-23 09:20 | Outpatient (AMB) | payer OTHER, SELFPAY ==
[2025-01-23 09:25] VITALS: BP 100/60; PULSE 75; O2SAT 100; BMI 28.7
--- NOTE | 2025-01-23 09:25 | A.OFFVIS_ITS ---
Vital Signs 01/23/25 09:25 Height 5 ft 7 in Weight 183 lb 3.266 oz BMI 28.7 BP 100/60 Blood Pressure Location Lt brachial Position Sitting Pulse 75 Pulse Source Pulse Oximeter Pulse Oximetry (%) 100 Intake Visit Reasons: 3 Months Intake Note: Patient presents for a follow up rheumatoid arthritis. Accompanied by: Self / Same As Patient Allergies No Known Allergies Allergy (Verified 01/23/25 09:26) HPI HPI 3 Months: Details: She has more hand pain in MCPs and PIPs in the last month. She decrease diclofenac from 75 mg b.i.d. to 50 mg b.i.d. due to transaminitis. All finger pads are numb. Wakes up with parenthesis of both hands. No new activi ties. She has not been able to work in years due to her disabilities. Soreness of right foot plantar aspect is healing with boot. Onset 3 months ago. She has neuropathy and lower extremities of unclear etiology and follows up with Neurology. She had EMG of lower extremities in 2022. She has an upcoming appointment Neurology. She has lower extremity edema of unclear etiology maintained on Lasix. [facility] Surgical History (Updated 10/23/24 @ 10:28 by Prachi Meade CMA) Status post scar revision History of shoulder replacement Social History (Updated 04/23/24 @ 11:38 by Linda Yi MA) Alcohol intake: never Patient Tobacco Use Status: Never used Tobacco Physical Exam Vital Signs: Last Vital Signs Pulse 75 01/23/25 09:25 BP 100/60 01/23/25 09:25 Pulse Ox 100 01/23/25 09:25 BMI result Body Mass Index 28.7 Const Other: General: Comfortable Skin: No lesions seen MSK: Tender bilateral PIP and left MCPs. No synovitis. Heberden nodes present. Normal range of motion of upper extremities. Bilateral knee flexion 100 degrees. Bilateral MTP tenderness Assessment & Plan Assessment & Plan (1) Generalized osteoarthritis: Comment: Generalized pain is tolerable on diclofenac 50 mg b.i.d. Rheumatology history: She has history of osteoarthritis affecting hands, bilateral knee status post bilateral replacement, left shoulder replacement and left hip status post replacement. She developed transaminitis on diclofenac 75 mg b.i.d., which resolved when it was decreased to 50 mg b.i.d. 12/2024 Code(s): M15.9 - Polyosteoarthritis, unspecified Category: Medical Plan: Continue diclofenac 50 mg twice a day. Return to clinic in 3 months (2) Osteoarthritis of hands, bilateral: Comment: Controlled on diclofenac Code(s): M19.041 - Primary osteoarthritis, right hand; M19.042 - Primary osteoarthritis, left hand Category: Medical Qualifiers: Osteoarthritis type: primary Qualified Code(s): M19.041 - Primary osteoarthritis, right hand; M19.042 - Primary osteoarthritis, left hand Plan: Continue OT exercises Continue diclofenac 50 mg twice a day Labs for drug monitoring chronic NSAID up-to-date 09/2024 and 12/2024 Return to clinic in 3 months (3) half-way (current) use of non-steroidal anti-inflammatories (nsaid): Code(s): Z79.1 - terminal carman (current) use of non-steroidal anti-inflammatories (NSAID) Category: Medical Plan: See above (4) Paresthesia of both hands: Comment: New in the last few months. She has a diagnosis of neuropathy and lower extremities without known etiology. We discussed next steps in workup with labs. EMG lower extremities 2022 was unremarkable per patient. Code(s): R20.2 - Paresthesia of skin Category: Medical Plan: Hemoglobin A1c, TSH and vitamin B12 ordered Follow up with Neurology at [facility]. Consider repeat EMGs for further workup of progressive neuropathy if labs are normal (5) Multiple joint pain: Comment: She has developed small joint pain in bilateral hands and feet with lower dose of diclofenac. Morning stiffness at least 1 hour. She does not have synovitis on exam. We discussed next steps in evaluation with labs and x-rays. Code(s): M25.50 - Pain in unspecified joint Category: Medical Plan: Labs and x-rays ordered for workup of early inflammatory arthritis Can consider MRI bilateral feet with and without contrast if workup is unremarkable to evaluate for subclinical inflammatory arthritis Return to clinic in 3 months Orders: Orders Vitamin B12 Today R20.2 - Paresthesia of skin Hemoglobin A1c Today R20.2 - Paresthesia of skin Cyclic Citrullinated Peptide Today M25.50 - Pain in unspecified joint C Reactive Protein Today M25.50 - Pain in unspecified joint, Z79.899 - Other terminal carman (current) drug therapy Erythrocyte Sedimentation Rate Today M25.50 - Pain in unspecified joint, Z79.899 - Other terminal carman (current) drug therapy XR Foot [place] 3V Today M25.50 - Pain in unspecified joint TSH reflex Free T4 Today R20.2 - Paresthesia of skin Creatinine Today M25.50 - Pain in unspecified joint, Z79.1 - half-way (current) use of non-steroidal anti-inflammatories (NSAID) Rheumatoid Factor Today M25.50 - Pain in unspecified joint XR Hand Bilat min 3v Today M25.50 - Pain in unspecified joint Coding Level of Care Code Est Pt Level 4 (15775) Complex EM visit Add On G2211 Diagnoses Generalized osteoarthritis M15.9 Primary osteoarthritis of both hands M19.041; M19.042 Osteoarthritis type: primary half-way (current) use of non-steroidal anti-inflammatories (nsaid) Z79.1 Paresthesia of both hands R20.2 Multiple joint pain M25.50
--- OUTSIDE RECORDS SUMMARY | 2025-01-23 10:27 | XMS_ITS | Encounter Summary ---
Author Organization [facility] Address [address] [place] [address] Care Team Providers Care Head Golf Coach Name Role Phone Beth Tolbert Primary Care Provider + Reason for Visit * Reason Onset Date Comments Prior Auth 12/23/2024 Encounter Details Date Type Department Care Team ([facility] st Contact Info) Description 12/23/2024 Telephone Internal Medicine - [address] [place] [address] Nivia Alvarez MA Social History [...] for your loved ones. For example, child care supervisor or elderly care for an older adult? [...] What Pharmacy did the fax come from: [facility] Pharmacy fax #: [phone] documented in this encounter Plan of Treatment Upcoming Encounters Date Type Department Care Team (Late st Contact Info) Description 04/15/2025 10:30 AM EST Office Visit Internal Medicine - [place] [address] [phone] Ivone Mullen NP [address] [address] 04/16/2025 9:30 AM EST Office Visit Gastroenterology - [place] 175 [facility] [address] [phone] Diana Napoles PA 175 [facility] 200 [place] [address] 05/12/2025 10:00 AM EST Office Visit General Surgery - [place] [address] [phone] Dilshad Victoria DO [address] [address] 07/28/2025 10:00 AM EDT Office Visit Internal Medicine - [place] [address] [phone] Beth Tolbert PA [address] [address] documented as of this encounter Visit Diagnoses Not on filedocumented in this encounter Additional Health Concerns Assessment Noted Time PHQ-9 Depression Total Score: 1 07/20/19 25 2:26 PM EDT documented as of this encounter Care Teams Head Golf Coach Relationship Specialty Start Date End Date Beth Tolbert PA [address] [address] PCP - General Primary Care 05/16/24 documented as of this encounter
--- OUTSIDE RECORDS SUMMARY | 2025-01-23 10:28 | XMS_ITS | Clinical Summary ---
Author Organization 175 [facility] Address 175 [place] [address] Phone Care Team Providers Care Outsole Cutter Machine Name Role Phone Beth Tolbert Primary Care Provider + Allergies No known active allergies Medications Bacillus coagulans/inuli n (PROBIOTIC FORMULA, INULIN, ORAL) Take by mouth [...] minutes after Active traZODone (DESYREL) 50 mg tabletIndicatio ns:Insomnia, unspecified type Take 1-2 tabs nightly as [...] 10/15/19 25 026 Active phentermine 15 mg capsuleIndicati ons:Obesity (BMI 30.0-34.9) Take 1 capsule (15 mg total) by mouth 1 (one) time each day before breakfast. Max Daily Amount: 15 mg 30 each 11/30/19 25 Active phentermine-top iramate (Qsymia) 11.25-69 mg capsule, ER multiphase 24 hrIndications:O besity (BMI 30.0-34.9),Etl Tester anthony pain of both knees Take 1 capsule [...] 2 07/09/19 25 025 Discontinu ed(Reorder ) amoxicillin-cla vulanate (AUGMENTIN) 875-125 mg per tablet Take 1 [...] Care Team Description 12/23/2024 Telephone Internal Medicine [address] [phone] Nivia Alvarez MA 12/19/2024 1:00 PM EDT Office Visit Internal Medicine [address] [phone] Paz Justinck, RETORT LOAD EXPEDITER Obesity (BMI 30.0-34.9) (Primary Dx); Chronic migraine with aura without status migrainosus, not intractable; Chronic pain of both knees 11/12/2024 1:45 PM EDT Consult General Surgery - [address] [place] [address] Dilshad Victoria, DO Diverticulitis of large intestine without perforation or abscess without bleeding (Primary Dx); Hx of colonic polyps; Diverticulosis 11/12/2024 Telephone Internal Medicine - [place] 175 [facility] 200 [place] [address] Beth Tolbert PA from Last 3 Months Immunizations Name Administration Dates Next Due Td Tetanus diptheria (Tdvax) 7yo and older 01/08 Surgical History Surgery Date Site/Laterality Comments CHOLECYSTECTOMY PROCEDURE: HISTORICAL CHOLECYSTECTOMY BUNIONECTOMY Right PROCEDURE: BUNION SURGERY, SIMPLE REMOVAL; COMMENT: 12/2021 Dr. Trujillo SHOULDER ARTHROSCOPY 07/2019 Left PROCEDURE: ND SURGICAL ARTHROSCOPY SHOULDER W/LSS&RESCJ ADS; COMMENT: Dr. Frias OTHER SURGICAL HISTORY PROCEDURE: ANESTHESIA FOR SECTION; COMMENT: x 1 SHOULDER ARTHROSCOPY 2015 Right PROCEDURE: ND SURGICAL ARTHROSCOPY SHOULDER W/LSS&RESCJ ADS; COMMENT: Dr. Frias EYE SURGERY 01/2020 Bilateral PROCEDURE: HISTORICAL EYE SURGERY; COMMENT: Randolph Rao SHOULDER ARTHROSCOPY 03/2020 Left PROCEDURE: ND SURGICAL ARTHROSCOPY SHOULDER W/LSS&RESCJ ADS; COMMENT: Dr. Frias FOOT SURGERY -2014 Right PROCEDURE: HISTORICAL FOOT SURGERY; COMMENT: lyndsey Suarez with tendon transfer SHOULDER ARTHROSCOPY 12/2020 Left PROCEDURE: ND SURGICAL ARTHROSCOPY SHOULDER W/LSS&RESCJ ADS; COMMENT: Dr. [...] high risk for breast cancer; COMMENT: follows [facility] - start Tamoxifen 20 mg daily 01/2020 [...] for your loved ones. For example, child watch attendant or elderly care for an older adult? [...] AM EST Office Visit Internal Medicine - [place] [address] [phone] Ivone Mullen NP [address] [address] 04/16/2025 9:30 AM EST Office Visit Gastroenterology - [place] [address] [phone] Diana Napoles PA [address] [address] 05/12/2025 10:00 AM EST Office Visit General Surgery - [place] 175 [facility] 110 [place] [phone] Dilshad Victoria, DO [address] [address] 07/28/2025 10:00 AM EDT Office Visit Internal Medicine - [place] [address] [phone] Beth Tolbert PA [address] [address] Health Maintenance Due Date Last Done Comments [...] Cholesterol Screening (Lipid Panel) 05/16/2029 05/16/2024, 05/05/2020 RSV Immunization Adult Patients (1 - 1-dose 75+ series) 2041 MMR Vaccines Aged Out 06/11/2021 No longer [...] Maintenance Results * COLONOSCOPY Anesthesia - MAC; [facility] ENDOSCOPY (10/04/2024 8:35 AM EDT) Anatomical Region Laterality Modality Endoscopy 10/04/2024 8:11 AM EDT Impressions 10/04/2024 8:36 AM EDT - Post-polypectomy scar in the ascending colon. Biopsied. - Diverticulosis in the entire examined colon. - Internal hemorrhoids. Recommendation: - Await pathology results. - Repeat colonoscopy in 3 years for surveillance. Narrative 10/04/2024 8:36 AM EDT [facility] GI Patient Name: Daiana Trimble Procedure [...] verified by the physician, the nurse, the splicing technician and the splicing technician in the pre-procedure area in the [...] reduce spontaneously). Procedure Code(s): --- Professional --- 11131, Colonoscopy, flexible; with biopsy, single or multiple Diagnosis Code(s): --- Professional --- Z98.890, Other specified postprocedural states Z86.010, Personal history of colonic polyps CPT copyright 2020 [employer]. All rights reserved. The codes documented in this report are preliminary and upon spindle plumber review may be revised to meet current compliance requirements. Karthik Simms MD 10/04/2024 8:36:31 AM This report has been signed electronically.Karthik Simms MD Number of Addenda: 0 Note Initiated On: 10/04/2024 8:11 AM Scope Withdrawal Time: 0 hours 10 minutes 57 seconds Scope In: 8:17:31 AM Scope Out: 8:34:29 AM Endoscopy Department at [facility] - [address] [place] [phone] Procedure Note Karthik Simms MD - 10/04/2024 [facility] GI Patient Name: Daiana Trimble Procedure [...] the physician, the nurse, theanesthetist and the splicing technician in the pre-procedure area in the [...] reduce spontaneously). Procedure Code(s): --- Professional --- 35830, Colonoscopy, flexible; with biopsy, singleor multiple Diagnosis Code(s): --- Professional --- Z98.890, Other specified postprocedural states Z86.010, Personal history of colonic polyps CPT copyright 2020 [employer]. All rights reserved. The codes documented in this report are preliminary and upon spindle plumber reviewmay be revised to meet current compliance requirements. Karthik Simms MD 10/04/2024 8:36:31 AM This report has been signed electronically.Karthik Simms MD Number of Addenda: 0 Note Initiated On: 10/04/2024 8:11 AM Scope Withdrawal Time: 0 hours 10 minutes 57 seconds Scope In: 8:17:31 AM Scope Out: 8:34:29 AM Endoscopy Department at [facility] - [address] [place] [phone] IMPRESSION: - Post-polypectomy scar in the ascending [...] LAB CHEMISTRY METHOD 05/16/2024 3:23 PM EST [facility] Triglycerides 148 0 - 150 mg/dL LAB CHEMISTRY METHOD 05/16/2024 3:23 PM EST [facility] HDL 43 >=40 mg/dL LAB CHEMISTRY METHOD 05/16/2024 3:23 PM EST [facility] LDL Calculated 115(H) 0 - 100 mg/dL LAB CHEMISTRY METHOD 05/16/2024 3:23 PM EST [facility] VLDL Cholesterol Yossi 29.6 mg/dL LAB CHEMISTRY METHOD 05/16/2024 3:23 PM EST [facility] Non HDL Chol. (LDL+VLDL) 145(H) <145 mg/dL LAB CHEMISTRY METHOD 05/16/2024 3:23 PM [facility] Chol/HDL Ratio 4.4 0.0 - 4.4 LAB CHEMISTRY METHOD 05/16/2024 3:23 PM [facility] Blood Venous blood specimen / Unknown Venipuncture / Unknown 05/16/2024 11:48 AM EST 05/16/2024 11:48 AM EST us Jose Ramon Theodore MD LAB BLOOD ORDERABLES Final Resul t [facility] [address] [place] [address], [place] [phone] from Last 3 Months or Most Recently Relevant to Health Maintenance Insurance [facility] Care Teams Outsole Cutter Machine Relationship Specialty Start Date End Date Beth Tolbert PA 175 [place] [address] PCP - General Primary Care 05/16/24
== END 2025-01-23 10:05 | disposition home or self-care (01) ==
LOC: HO.RHES 09:21
PROVIDERS: PCP Physician Assistant; Visit Provider Internal Medicine Rheumatology
DX: M19.041 Primary osteoarthritis, right hand (principal); M19.042 Primary osteoarthritis, left hand; Z79.1 Long term (current) use of non-steroidal anti-inflammatories (NSAID); R20.2 Paresthesia of skin; M25.50 Pain in unspecified joint
CPT/HCPCS: 99214; G2211